=== PATIENT | female | born 1995 | race American Indian/Alaskan Native ===

== ENCOUNTER 2017-01-23 12:39 | Emergency (ER) | payer OTHER ==
[2017-01-23] MEDS ORDERED: TYLENOL PO ONE (17:43)
[2017-01-23 18:05] LABS: Urine Drugs of Abuse Note Disclamer
[2017-01-23 18:20] LABS: Bacteria,Urine 1+ /HPF (Negative); Bilirubin,Urine NEG (Negative); Blood,Urine NEG (Negative); Ketones,Urine TR mg/dL (Negative); Leukocyte Esterase,Urine NEG (Negative); Mucus,Urine 3+ /HPF; Nitrite,Urine NEG (Negative); Protein,Urine <15 mg/dL mg/dL (Negative)
[2017-01-23 18:26] LABS: Basophils % (Auto) 0.5 % (0.0-1.8); Eosinophils % (Auto) 2.7 % (0.0-4.3); Hematocrit 37.1 % (30.3-42.9); Hemoglobin 12.2 gm/dl (10.1-14.3); Mean Corpuscular HGB Conc 33 % (30-34); Mean Corpuscular Hemoglobin 28 pg (28-32); Mean Corpuscular Volume 86 fl (79-97); Platelet Count 178 K/mm3 (140-440); Red Blood Count 4.33 M/mm3 (3.65-5.03); White Blood Count 10.8 K/mm3 (4.5-11.0)
[2017-01-23 18:47] LABS: Anion Gap 15 mmol/L; BUN/Creatinine Ratio 20; Blood Urea Nitrogen 12 mg/dL (7-17); Calcium 8.9 mg/dL (8.4-10.2); Carbon Dioxide 26 mmol/L (22-30); Glucose 87 mg/dL (65-100); Potassium 3.7 mmol/L (3.6-5.0); Sodium 142 mmol/L (137-145)
[2017-01-23 18:51] LABS: Alanine Aminotransferase 17 units/L (7-56); Albumin 4.2 g/dL (3.9-5); Albumin/Globulin Ratio 1.3 %; Alkaline Phosphatase 48 units/L (35-129); Creatine Kinase 604 units/L (30-135); Total Protein 7.4 g/dL (6.3-8.2)
[2017-01-23 18:52] LABS: Bilirubin,Direct < 0.2 mg/dL (0-0.2)
--- NOTE | 2017-01-23 19:07 | Cat Scan Report ---
FINAL REPORT PROCEDURE: CT HEAD/BRAIN WO CON TECHNIQUE: Computerized tomography of the head was performed without contrast material. HISTORY: severe headache worsening COMPARISON: Prior CT scan of the brain 01/20/2017 FINDINGS: Brain: Brain density appears normal. No evidence of intracranial hemorrhage. No parenchymal hemorrhage, mass lesions or mass effect are seen. No abnormal extraxial fluid collects or masses are seen. Ventricles: Ventricles are normal size and are midline. Bone Windows: No evidence of skull fracture. Paranasal sinuses: Clear Mastoid air cells: Clear IMPRESSION: Negative exam. No interval change.
[2017-01-23] MEDS ORDERED: TORADOL IM ONE (19:16)
--- NOTE | 2017-01-23 19:21 | Emergency Department Report ---
ED Headache HPI - General Chief Complaint: Headache Stated Complaint: HEAD PAIN, NECK STIFFNESS Time Seen by Provider: 01/23/17 17:07 Source: patient - History of Present Illness Initial Comments: Patient is a 21 years old female history of seizure presented today with chief complaint of headache and neck pain started this morning patient stated that she wake up with the symptoms. She denied any fever, nausea, vomiting. Patient is stated that she does not have any weakness, numbness or tingling sensation no bowel or bladder incontinence and no difficulty walking. While in the bathroom patient fell and hit her head but there is no loss of consciousness. Quality: moderate Head Injury Location: global Recent Head Trauma: no recent headache/trauma Allergies/Adverse Reactions: Allergies latex Allergy (Verified 01/23/17 12:55) Rash phenytoin sodium [From Dilantin] Allergy (Verified 01/23/17 12:55) Unknown phenytoin sodium extended [From Dilantin] Allergy (Verified 01/23/17 12:55) Unknown Home Medications: Ambulatory Orders ALBUTEROL Inhaler [ProAir HFA Inhaler] 2 puff INHALATION Q6HR PRN 12/12/13 Vit B12/Folic Acid/B6/Aa No.15 [Glycotrol Capsule] 1 cap PO DAILY 12/12/13 Omeprazole [PriLOSEC] 20 mg PO BID #30 cap 05/15/14 Dicyclomine [Bentyl] 20 mg PO QID #20 tablet 10/12/14 Promethazine [Phenergan TAB] 25 mg PO Q6HR PRN #10 tab 10/12/14 levETIRAcetam [Keppra TAB] 500 mg PO BID #60 tablet 01/21/17 ED Review of Systems ROS: Stated complaint: HEAD PAIN, NECK STIFFNESS Other details as noted in HPI Comment: All other systems reviewed and negative Constitutional: denies: chills, fever Respiratory: denies: cough, orthopnea, shortness of breath, SOB with exertion, SOB at rest Cardiovascular: denies: chest pain, palpitations, dyspnea on exertion, orthopnea Gastrointestinal: denies: abdominal pain, nausea, vomiting, diarrhea, constipation, hematemesis, melena, hematochezia Genitourinary: denies: frequency, hematuria Musculoskeletal: denies: back pain Neurological: headache. denies: weakness, numbness, paresthesias, confusion ED Past Medical Hx - Past Medical History Hx Congestive Heart Failure: No Hx Diabetes: Yes (controlled by diet) Hx Seizures: Yes Hx Asthma: Yes Hx COPD: No - Surgical History Past Surgical History?: No - Social History Smoking Status: Never Smoker Substance Use Type: None - Medications Home Medications: Home Medications Medication Instructions Recorded Confirmed Last Taken Type ALBUTEROL Inhaler [ProAir HFA 2 puff INHALATION Q6HR PRN 12/12/13 03/22/16 Unknown History Inhaler] Vit B12/Folic Acid/B6/Aa No.15 1 cap PO DAILY 12/12/13 03/22/16 12/12/13 History [Glycotrol Capsule] Omeprazole [PriLOSEC] 20 mg PO BID #30 cap 05/15/14 03/22/16 Unknown Rx Dicyclomine [Bentyl] 20 mg PO QID #20 tablet 10/12/14 03/22/16 Unknown Rx Promethazine [Phenergan TAB] 25 mg PO Q6HR PRN #10 tab 10/12/14 03/22/16 Unknown Rx levETIRAcetam [Keppra TAB] 500 mg PO BID #60 tablet 01/21/17 Unknown Rx ED Physical Exam - General Limitations: No Limitations General appearance: alert, in no apparent distress - Head Head exam: Present: atraumatic, normocephalic, normal inspection - Eye Eye exam: Present: normal appearance, PERRL - ENT ENT exam: Present: normal exam, normal orophraynx, mucous membranes moist - Neck Neck exam: Present: normal inspection. Absent: tenderness, meningismus, lymphadenopathy, thyromegaly - Respiratory Respiratory exam: Present: normal lung sounds bilaterally. Absent: respiratory distress, wheezes, rales, rhonchi, stridor, chest wall tenderness, accessory muscle use, decreased breath sounds, prolonged expiratory - Cardiovascular Cardiovascular Exam: Present: regular rate, normal rhythm, normal heart sounds. Absent: bradycardia, tachycardia, irregular rhythm, systolic murmur, diastolic murmur - GI/Abdominal GI/Abdominal exam: Present: soft, normal bowel sounds. Absent: distended, tenderness, guarding, rebound, rigid, organomegaly, mass, bruit, pulsatile mass , hernia - Extremities Exam Extremities exam: Present: normal inspection, full ROM, normal capillary refill. Absent: tenderness, pedal edema - Back Exam Back exam: Present: normal inspection. Absent: tenderness, CVA tenderness (R), CVA tenderness (L) - Neurological Exam Neurological exam: Present: alert, oriented X3, CN II-XII intact, normal gait - Skin Skin exam: Present: warm, intact, normal color ED Course Vital Signs 01/23/17 01/23/17 12:55 20:34 Temperature 98.4 F Pulse Rate 78 Respiratory 16 18 Rate Blood Pressure 135/83 O2 Sat by Pulse 100 Oximetry - Reevaluation(s) Reevaluation #1: 01/23/17 21:06 Patient stated that she is feeling much better, headache resolve and neck pain improved significantly after Toradol. ED Medical Decision Making - Lab Data Result diagrams: 01/23/17 18:05 01/23/17 18:05 - Radiology Data Radiology results: report reviewed CT head negative for acute finding, CT C-spine negative for acute finding. Critical care attestation.: If time is entered above; I have spent that time in minutes in the direct care of this critically ill patient, excluding procedure time. ED Disposition Clinical Impression: Headache, Neck pain Disposition: DC-01 TO HOME OR SELFCARE Is pt being admited?: No Condition: Stable Instructions: Acute Headache (ED), Cervical Radiculopathy (ED) Referrals: PRIMARY CARE, [Primary Care Provider] - 3-5 Days
--- NOTE | 2017-01-23 20:46 | Cat Scan Report ---
FINAL REPORT PROCEDURE: CT CERVICAL SPINE WO CON TECHNIQUE: Computerized tomography of the cervical spine was performed from the skull base to T1 without contrast material. HISTORY: Fell. Loss of consciousness COMPARISON: No prior studies are available for comparison. FINDINGS: No evidence of fracture or subluxation. Bone density appears normal. Posterior elements appear intact. Prevertebral soft tissues appear normal. Disc spaces are well preserved with the exception of a small central disc protrusion at the C4-C5 level obscuring a small portion the anterior epidural space. There is no cord compression or spinal stenosis. IMPRESSION: No evidence of fracture or subluxation. Small central disc protrusion C4-C5 level. No other abnormalities are identified..
[2017-01-23 21:47] VITALS: BP 122/72
== END 2017-01-23 21:48 | disposition home or self-care (01) ==
LOC: ED 12:39
DX: R51 Headache (principal); M54.2 Cervicalgia; J45.909 Unspecified asthma, uncomplicated; E11.9 Type 2 diabetes mellitus without complications; R53.1 Weakness; W01.0XXA Fall on same level from slipping, tripping and stumbling without subsequent striking against object, initial encounter; Y93.89 Activity, other specified; Y92.89 Other specified places as the place of occurrence of the external cause; Y99.8 Other external cause status
CPT/HCPCS: 36415; 70450; 72125; 80048; 80074; 80307; 81001; 81025; 82140; 82550; 85025; 87040; 87086; 96372; 99284; J1885

== ENCOUNTER 2017-03-17 00:04 | Emergency (ER) | payer OTHER ==
[2017-03-17] MEDS ORDERED: TORADOL IM ONE (05:05)
--- NOTE | 2017-03-17 05:06 | Emergency Department Report ---
ED Headache HPI - General Chief Complaint: Headache Stated Complaint: CHEST PAIN / HEAD PAIN Time Seen by Provider: 03/17/17 04:17 - History of Present Illness Initial Comments: Patient is a 21-year-old female who presents to ED complaining of generalized, throbbing, aching, 6 out of 10 intensity, nonradiating headache that started yesterday. Patient states she has no history of headaches. Patient states headache is worse with light and loud noises. She denies any head injuries or trauma. CV associates 2/nausea/vomiting/blurry vision/dizziness Timing/Duration: 24 hours Quality: moderate Recent Head Trauma: no recent headache/trauma Associated Symptoms: denies: confusion, fatigue, loss of consciousness, nausea/ vomiting, nasal congestion Allergies/Adverse Reactions: Allergies latex Allergy (Verified 01/23/17 12:55) Rash phenytoin sodium [From Dilantin] Allergy (Verified 01/23/17 12:55) Unknown phenytoin sodium extended [From Dilantin] Allergy (Verified 01/23/17 12:55) Unknown Home Medications: Ambulatory Orders ALBUTEROL Inhaler [ProAir HFA Inhaler] 2 puff INHALATION Q6HR PRN 12/12/13 Vit B12/Folic Acid/B6/Aa No.15 [Glycotrol Capsule] 1 cap PO DAILY 12/12/13 Omeprazole [PriLOSEC] 20 mg PO BID #30 cap 05/15/14 Dicyclomine [Bentyl] 20 mg PO QID #20 tablet 10/12/14 Promethazine [Phenergan TAB] 25 mg PO Q6HR PRN #10 tab 10/12/14 levETIRAcetam [Keppra TAB] 500 mg PO BID #60 tablet 01/21/17 Metaxalone [Skelaxin] 800 mg PO TID #20 tablet 01/23/17 Naproxen [Naprosyn TAB] 500 mg PO BID #14 tablet 03/17/17 Prochlorperazine [Compazine] 10 mg PO Q8HR #20 tablet 03/17/17 ED Review of Systems ROS: Stated complaint: CHEST PAIN / HEAD PAIN Other details as noted in HPI Constitutional: denies: chills, fever Eyes: denies: eye pain, eye discharge, vision change ENT: denies: ear pain, throat pain Respiratory: denies: cough, shortness of breath, wheezing Cardiovascular: denies: chest pain, palpitations Endocrine: no symptoms reported Gastrointestinal: denies: abdominal pain, nausea, diarrhea Genitourinary: denies: urgency, dysuria, discharge Musculoskeletal: denies: back pain, joint swelling, arthralgia Skin: denies: rash, lesions Neurological: headache. denies: weakness, numbness, paresthesias, confusion, abnormal gait Psychiatric: denies: anxiety, depression Hematological/Lymphatic: denies: easy bleeding, easy bruising ED Past Medical Hx - Past Medical History Previous Medical History?: Yes Hx Congestive Heart Failure: No Hx Diabetes: Yes (controlled by diet) Hx Seizures: Yes Hx Asthma: Yes Hx COPD: No - Surgical History Past Surgical History?: No - Social History Smoking Status: Never Smoker Substance Use Type: None - Medications Home Medications: Home Medications Medication Instructions Recorded Confirmed Last Taken Type ALBUTEROL Inhaler [ProAir HFA 2 puff INHALATION Q6HR PRN 12/12/13 03/22/16 Unknown History Inhaler] Vit B12/Folic Acid/B6/Aa No.15 1 cap PO DAILY 12/12/13 03/22/16 12/12/13 History [Glycotrol Capsule] Omeprazole [PriLOSEC] 20 mg PO BID #30 cap 05/15/14 03/22/16 Unknown Rx Dicyclomine [Bentyl] 20 mg PO QID #20 tablet 10/12/14 03/22/16 Unknown Rx Promethazine [Phenergan TAB] 25 mg PO Q6HR PRN #10 tab 10/12/14 03/22/16 Unknown Rx levETIRAcetam [Keppra TAB] 500 mg PO BID #60 tablet 01/21/17 Unknown Rx Metaxalone [Skelaxin] 800 mg PO TID #20 tablet 01/23/17 Unknown Rx Naproxen [Naprosyn TAB] 500 mg PO BID #14 tablet 03/17/17 Unknown Rx Prochlorperazine [Compazine] 10 mg PO Q8HR #20 tablet 03/17/17 Unknown Rx ED Physical Exam - General Limitations: No Limitations General appearance: alert, in no apparent distress - Head Head exam: Present: atraumatic, normocephalic - Eye Eye exam: Present: normal appearance - ENT ENT exam: Present: mucous membranes moist - Neck Neck exam: Present: normal inspection - Respiratory Respiratory exam: Present: normal lung sounds bilaterally. Absent: respiratory distress - Cardiovascular Cardiovascular Exam: Present: regular rate, normal rhythm. Absent: systolic murmur, diastolic murmur, rubs, gallop - GI/Abdominal GI/Abdominal exam: Present: soft, normal bowel sounds - Extremities Exam Extremities exam: Present: normal inspection - Back Exam Back exam: Present: normal inspection - Neurological Exam Neurological exam: Present: alert, oriented X3, CN II-XII intact, normal gait, reflexes normal - Expanded Neurological Exam Expanded Patient oriented to: Present: person, place, time Speech: Present: fluid speech Cranial nerves: EOM's Intact: Normal, Facial Sensation: Normal Cerebellar function: Finger to Nose: Normal Sensory exam: Upper Extremity Light Touch: Normal, Lower Extremity Light Touch: Normal Motor strength exam: RUE: 5, LUE: 5, RLE: 5, LLE: 5 DTR: knee (R): 2+, knee (L): 2+ Best Eye Response ([place]): (4) open spontaneously Best Motor Response (Dhruv): (6) obeys commands Best Verbal Response (Dhruv): (5) oriented Dhruv Total: 15 - Psychiatric Psychiatric exam: Present: normal affect, normal mood - Skin Skin exam: Present: warm, dry, intact, normal color. Absent: rash ED Course Vital Signs 03/17/17 03/17/17 02:01 05:59 Temperature 98.2 F 97.8 F Pulse Rate 74 70 Respiratory 18 16 Rate Blood Pressure 126/78 Blood Pressure 118/75 [Right] O2 Sat by Pulse 100 98 Oximetry ED Medical Decision Making - Medical Decision Making 21-year-old female presents with migraine headache ED course: Patient received Toradol in ED Patient was sleeping comfortably in room. Patient has no neurological deficits. Vital signs are normal patient is in no acute distress. I discussed the patient to follow up with primary care physician. I discussed with patient to return to ED if symptoms worsen or new onset of symptoms such as nausea vomiting dizziness Critical care attestation.: If time is entered above; I have spent that time in minutes in the direct care of this critically ill patient, excluding procedure time. ED Disposition Clinical Impression: Headache Qualifiers: Headache type: tension-type Headache chronicity pattern: acute headache Migraine Qualifiers: Migraine type: other Status migrainosus presence: without status migrainosus Disposition: DC- TO HOME OR SELFCARE Is pt being admited?: No Does the pt Need Aspirin: No Condition: Stable Instructions: Migraine Headache (ED), Acute Headache (ED) Additional Instructions: Make sure to follow up with the primary care physician as discussed. Take all your medications as you've been prescribed. If you have any worsening symptoms or develop new symptoms please return to ED immediately. Prescriptions: Naproxen [Naprosyn TAB] 500 mg PO BID #14 tablet Prochlorperazine [Compazine] 10 mg PO Q8HR #20 tablet Referrals: CLARISSE GUTIERREZ MD [Primary Care Provider] - 3-5 Days ANNY TAVAREZ MD [Staff Physician] - 3-5 Days Forms: Accompanied Note, Work/School Release Form(ED) Time of Disposition: 05:31
[2017-03-17 06:00] VITALS: BP 118/75
== END 2017-03-17 05:58 | disposition home or self-care (01) ==
LOC: ED 00:04
DX: G43.909 Migraine, unspecified, not intractable, without status migrainosus (principal); E11.9 Type 2 diabetes mellitus without complications
CPT/HCPCS: 93005; 93010; 96372; 99282; J1885

== ENCOUNTER 2017-08-17 20:52 | Emergency (ER) | payer OTHER ==
[2017-08-17 23:25] LABS: Hematocrit 38.6 % (30.3-42.9); Hemoglobin 12.5 gm/dl (10.1-14.3); Mean Corpuscular HGB Conc 32 % (30-34); Mean Corpuscular Hemoglobin 27 pg (28-32); Mean Corpuscular Volume 84 fl (79-97); Platelet Count 178 K/mm3 (140-440); Red Blood Count 4.58 M/mm3 (3.65-5.03); Red Cell Distribution Width 13.5 % (13.2-15.2)
[2017-08-17 23:41] LABS: Alanine Aminotransferase 20 units/L (7-56); Albumin 4.2 g/dL (3.9-5); BUN/Creatinine Ratio 18; Blood Urea Nitrogen 9 mg/dL (7-17); Calcium 8.9 mg/dL (8.4-10.2); Hemolysis Index 12
[2017-08-18 02:28] LABS: Total Cells Counted 100
[2017-08-18 02:29] LABS: RBC Morphology Normal
[2017-08-18] MEDS ORDERED: TORADOL IV ONE (04:06)
[2017-08-18] MEDS ORDERED: TYLENOL PO ONE (04:07)
[2017-08-18] MEDS ORDERED: ZOFRAN IV ONE (04:07)
--- NOTE | 2017-08-18 04:07 | Emergency Department Report ---
ED Abdominal Pain HPI - General Chief Complaint: Abdominal Pain Stated Complaint: ABD PAIN/VOMITING Time Seen by Provider: 08/18/17 03:58 Source: patient Mode of arrival: Ambulatory Limitations: No Limitations - History of Present Illness Initial Comments: This is a 21-year-old female, known to this provider, presenting to the ER with a complaint of lower abdominal pain. The pain is present for 2 days, she vomited 7 times over the past couple days, reports that she is not , reports one sexual partner. Denies headache, neck pain, chest pain, urinary symptoms, feminine discharge. Her pain is achy and crampy, it is suprapubic and in the left lower quadrant, it does not radiate anywhere, and she reports she gets better when she sits down or leans forward. MD Complaint: abdominal pain -: Gradual Location: LLQ, suprapubic Severity: mild, moderate Quality: cramping Consistency: intermittent Improves With: other Worsens With: other - Related Data Home Medications Medication Instructions Recorded Confirmed Last Taken ALBUTEROL Inhaler [ProAir HFA 2 puff INHALATION Q6HR PRN 12/12/13 03/22/16 Unknown Inhaler] Vit B12/Folic Acid/B6/Aa No.15 1 cap PO DAILY 12/12/13 03/22/16 12/12/13 [Glycotrol Capsule] Previous Rx's Medication Instructions Recorded Last Taken Type Omeprazole [PriLOSEC] 20 mg PO BID #30 cap 05/15/14 Unknown Rx Dicyclomine [Bentyl] 20 mg PO QID #20 tablet 10/12/14 Unknown Rx Promethazine [Phenergan TAB] 25 mg PO Q6HR PRN #10 tab 10/12/14 Unknown Rx levETIRAcetam [Keppra TAB] 500 mg PO BID #60 tablet 01/21/17 Unknown Rx Metaxalone [Skelaxin] 800 mg PO TID #20 tablet 01/23/17 Unknown Rx Naproxen [Naprosyn TAB] 500 mg PO BID #14 tablet 03/17/17 Unknown Rx Prochlorperazine [Compazine] 10 mg PO Q8HR #20 tablet 03/17/17 Unknown Rx Acetaminophen [Tylenol Arthritis] 650 mg PO Q6HR PRN #30 tablet.er 08/18/17 Unknown Rx Ibuprofen [Motrin] 600 mg PO Q8H PRN #30 tablet 08/18/17 Unknown Rx Ondansetron [Zofran Odt] 4 mg PO Q8HR PRN #20 tab.rapdis 08/18/17 Unknown Rx Allergies Allergy/AdvReac Type Severity Reaction Status Date / Time latex Allergy Rash Verified 01/23/17 12:55 phenytoin sodium Allergy Unknown Verified 01/23/17 12:55 [From Dilantin] phenytoin sodium extended Allergy Unknown Verified 01/23/17 12:55 [From Dilantin] ED Review of Systems ROS: Stated complaint: ABD PAIN/VOMITING Other details as noted in HPI Constitutional: denies: fever Eyes: denies: vision change ENT: denies: epistaxis Respiratory: denies: cough Cardiovascular: denies: chest pain Gastrointestinal: abdominal pain. denies: hematemesis, melena Genitourinary: denies: dysuria Musculoskeletal: denies: back pain Skin: denies: lesions Neurological: weakness. denies: headache Psychiatric: as per HPI ED Past Medical Hx - Past Medical History Hx Congestive Heart Failure: No Hx Diabetes: Yes (controlled by diet) Hx Seizures: Yes Hx Asthma: Yes Hx COPD: No - Social History Smoking Status: Never Smoker Substance Use Type: None - Medications Home Medications: Home Medications Medication Instructions Recorded Confirmed Last Taken Type ALBUTEROL Inhaler [ProAir HFA 2 puff INHALATION Q6HR PRN 12/12/13 03/22/16 Unknown History Inhaler] Vit B12/Folic Acid/B6/Aa No.15 1 cap PO DAILY 12/12/13 03/22/16 12/12/13 History [Glycotrol Capsule] Omeprazole [PriLOSEC] 20 mg PO BID #30 cap 05/15/14 03/22/16 Unknown Rx Dicyclomine [Bentyl] 20 mg PO QID #20 tablet 10/12/14 03/22/16 Unknown Rx Promethazine [Phenergan TAB] 25 mg PO Q6HR PRN #10 tab 10/12/14 03/22/16 Unknown Rx levETIRAcetam [Keppra TAB] 500 mg PO BID #60 tablet 01/21/17 Unknown Rx Metaxalone [Skelaxin] 800 mg PO TID #20 tablet 01/23/17 Unknown Rx Naproxen [Naprosyn TAB] 500 mg PO BID #14 tablet 03/17/17 Unknown Rx Prochlorperazine [Compazine] 10 mg PO Q8HR #20 tablet 03/17/17 Unknown Rx Acetaminophen [Tylenol Arthritis] 650 mg PO Q6HR PRN #30 tablet.er 08/18/17 Unknown Rx Ibuprofen [Motrin] 600 mg PO Q8H PRN #30 tablet 08/18/17 Unknown Rx Ondansetron [Zofran Odt] 4 mg PO Q8HR PRN #20 tab.rapdis 08/18/17 Unknown Rx ED Physical Exam - General Limitations: No Limitations General appearance: alert, in no apparent distress - Head Head exam: Present: atraumatic, normocephalic - Eye Eye exam: Present: normal appearance, EOMI. Absent: nystagmus - ENT ENT exam: Present: normal exam, normal orophraynx, mucous membranes moist, normal external ear exam - Neck Neck exam: Present: normal inspection, full ROM - Respiratory Respiratory exam: Present: normal lung sounds bilaterally. Absent: respiratory distress - Cardiovascular Cardiovascular Exam: Present: regular rate, normal rhythm, normal heart sounds. Absent: bradycardia, tachycardia, irregular rhythm, systolic murmur, diastolic murmur, rubs, gallop - GI/Abdominal GI/Abdominal exam: Present: soft, tenderness, normal bowel sounds, other ( suprapubic and left lower quadrant tenderness. There is no right lower quadrant tenderness, there is no rebound, guarding or peritoneal signs. Negative Rovsing sign. There is negative Juarez sign.). Absent: distended, guarding, rebound, rigid, pulsatile mass - External exam: Present: normal external exam Speculum exam: Present: normal speculum exam. Absent: cervical discharge, vaginal bleeding Bi-manual exam: Present: normal bi-manual exam, cervical motion tendernes, adnexal tenderness, uterine tenderness, other (escorted by nursing CLAU SANCHEZ) . Absent: adnexal mass, uterine enlargement - Extremities Exam Extremities exam: Present: normal inspection, full ROM. Absent: tenderness, pedal edema, joint swelling - Back Exam Back exam: Present: normal inspection, full ROM. Absent: tenderness, CVA tenderness (R), paraspinal tenderness, vertebral tenderness - Neurological Exam Neurological exam: Present: alert, oriented X3, CN II-XII intact, normal gait, other (Extraocular movements intact. Tongue midline. No facial droop. Facial sensation intact to light touch in the V1, V2, V3 distribution bilaterally. 5 and 5 strength in 4 extremities.. Sensation is intact to light touch in 4 extremities.). Absent: motor sensory deficit - Psychiatric Psychiatric exam: Present: normal affect, normal mood - Skin Skin exam: Present: warm, dry, intact, normal color. Absent: rash ED Course Vital Signs 08/17/17 22:35 Temperature 98.4 F Pulse Rate 69 Respiratory 16 Rate Blood Pressure 127/84 O2 Sat by Pulse 98 Oximetry - Reevaluation(s) Reevaluation #1: 08/18/17 05:34 Differential diagnosis, including but not limited to: Ovarian cyst, pelvic inflammatory disease, urinary tract infection, polycystic ovaries Assessment and plan: 21-year-old female with lower abdominal pain, no right lower quadrant tenderness, has gynecologic tenderness she is afebrile with reassuring vital signs. Patient's pain will be treated symptomatically. Have a low suspicion for pelvic inflammatory disease given the lack of fever, discharge. Cultures have been sent. Care is transferred to the oncoming ER physician, Dr Ceasar Go, to follow up on pelvic ultrasound. If negative, patient would be discharged with pain medication, nausea medication, instructions to follow up with outpatient gynecology. Reevaluation #2: 08/18/17 05:36 Dr. Go also to follow up on repeat vital signs in urinalysis. ED Medical Decision Making - Lab Data Result diagrams: 08/17/17 23:12 08/17/17 23:12 Vital Signs 08/17/17 22:35 Temperature 98.4 F Pulse Rate 69 Respiratory 16 Rate Blood Pressure 127/84 O2 Sat by Pulse 98 Oximetry Lab Results 08/17/17 08/17/17 08/17/17 Range/Units 23:12 23:12 23:12 WBC 10.0 (4.5-11.0) K/mm3 RBC 4.58 (3.65-5.03) M/mm3 Hgb 12.5 (10.1-14.3) gm/dl Hct 38.6 (30.3-42.9) % MCV 84 (79-97) fl MCH 27 L (28-32) pg MCHC 32 (30-34) % RDW 13.5 (13.2-15.2) % Plt Count 178 (140-440) K/mm3 Add Manual Diff Complete Total Counted 100 Seg Neuts % (Manual) 69.0 (40.0-70.0) % Band Neutrophils % 0 % Lymphocytes % (Manual) 23.0 (13.4-35.0) % Reactive Lymphs % (Man) 0 % Monocytes % (Manual) 2.0 (0.0-7.3) % Eosinophils % (Manual) 5.0 H (0.0-4.3) % Basophils % (Manual) 1.0 (0.0-1.8) % Metamyelocytes % 0 % Myelocytes % 0 % Promyelocytes % 0 % Blast Cells % 0 % Nucleated RBC % Not Reportable Seg Neutrophils # Man 6.9 (1.8-7.7) K/mm3 Band Neutrophils # 0.0 K/mm3 Lymphocytes # (Manual) 2.3 (1.2-5.4) K/mm3 Abs React Lymphs (Man) 0.0 K/mm3 Monocytes # (Manual) 0.2 (0.0-0.8) K/mm3 Eosinophils # (Manual) 0.5 H (0.0-0.4) K/mm3 Basophils # (Manual) 0.1 (0.0-0.1) K/mm3 Metamyelocytes # 0.0 K/mm3 Myelocytes # 0.0 K/mm3 Promyelocytes # 0.0 K/mm3 Blast Cells # 0.0 K/mm3 WBC Morphology Not Reportable Hypersegmented Neuts Not Reportable Hyposegmented Neuts Not Reportable Hypogranular Neuts Not Reportable Smudge Cells Not Reportable Toxic Granulation Not Reportable Toxic Vacuolation Not Reportable Dohle Bodies Not Reportable Pelger-Huet Anomaly Not Reportable Shailesh Rods Not Reportable Platelet Estimate Appears normal Clumped Platelets Not Reportable Plt Clumps, EDTA Not Reportable Large Platelets Not Reportable Giant Platelets Not Reportable Platelet Satelliting Not Reportable Plt Morphology Comment Not Reportable RBC Morphology Normal Dimorphic RBCs Not Reportable Polychromasia Not Reportable Hypochromasia Not Reportable Poikilocytosis Not Reportable Anisocytosis Not Reportable Microcytosis Not Reportable Macrocytosis Not Reportable Spherocytes Not Reportable Pappenheimer Bodies Not Reportable Sickle Cells Not Reportable Target Cells Not Reportable Tear Drop Cells Not Reportable Ovalocytes Not Reportable Helmet Cells Not Reportable Shannon-[place]ollo Bodies Not Reportable [place] Rings Not Reportable [place] Cells Not Reportable Bite Cells Not Reportable Crenated Cell Not Reportable Elliptocytes Not Reportable Acanthocytes (Spur) Not Reportable Rouleaux Not Reportable Hemoglobin C Crystals Not Reportable Schistocytes Not Reportable Malaria parasites Not Reportable Stefano Bodies Not Reportable Hem Pathologist Commnt No Sodium 140 (137-145) mmol/L Potassium 3.5 L (3.6-5.0) mmol/L Chloride 102.9 (98-107) mmol/L Carbon Dioxide 25 (22-30) mmol/L Anion Gap 16 mmol/L BUN 9 (7-17) mg/dL Creatinine 0.5 L (0.7-1.2) mg/dL Estimated GFR > 60 ml/min BUN/Creatinine Ratio 18 % Glucose 92 (65-100) mg/dL Calcium 8.9 (8.4-10.2) mg/dL Total Bilirubin 0.20 (0.1-1.2) mg/dL AST 21 (5-40) units/L ALT 20 (7-56) units/L Alkaline Phosphatase 52 (35-129) units/L Total Protein 7.3 (6.3-8.2) g/dL Albumin 4.2 (3.9-5) g/dL Albumin/Globulin Ratio 1.4 % HCG, Qual Negative (Negative) Critical care attestation.: If time is entered above; I have spent that time in minutes in the direct care of this critically ill patient, excluding procedure time. ED Disposition Clinical Impression: Abdominal pain Disposition: DC-01 TO HOME OR SELFCARE Is pt being admited?: No Does the pt Need Aspirin: No Condition: Stable Instructions: Abdominal Pain (ED) Additional Instructions: Cultures were sent today, results will be available in the next 3-5 days. Have a primary care doctor contact the medical records department to obtain culture results. Ultrasound showed numerous incidental findings, please follow up with an [facility] doctor within the next 7-14 days. Return to the ER right away with ear pain, worsening pain, migration of pain, fevers, chills, lethargy, irritability, projectile vomiting, change in mental status, confusion, inability to tolerate liquid feeds. Referrals: PRIMARY CARE, [Primary Care Provider] - 3-5 Days [facility] [Provider Group] - 3-5 Days [facility] [Provider Group] - 3-5 Days [facility] [Provider Group] - 3-5 Days
[2017-08-18 05:57] VITALS: BP 122/74
[2017-08-18 05:57] LABS: Bilirubin,Urine NEG (Negative); Blood,Urine NEG (Negative); Calcium Oxalate Crystals,Urine 1+; Color,Urine Yellow (Yellow); Mucus,Urine 3+ /HPF; Protein,Urine <15 mg/dL mg/dL (Negative)
--- NOTE | 2017-08-18 06:12 | Ultrasound Report ---
FINAL REPORT EXAM: US TRANSVAGINAL HISTORY: lower abd pain COMPARISONS: None. FINDINGS: Transvaginal grayscale, color and spectral Doppler pelvic ultrasound Anteverted uterus measures 7.2 x 3.4 x 4.9 cm. Myometrium is within normal limits. Homogeneous endometrium measures approximately 1-2 millimeters in thickness. No significant free fluid in the pelvis. Ovaries demonstrate normal echotexture and normal color and spectral Doppler evaluation and measure 3.3 x 2.7 x 2.7 cm on the right and 4.1 x 2.5 x 3.2 cm on the left. Dominant left ovarian follicle measures up to 2.5 cm. IMPRESSION: Unremarkable pelvic ultrasound.
--- NOTE | 2017-08-18 06:13 | Ultrasound Report ---
FINAL REPORT EXAM: US PELVIS DUPLEX DOPPLER COMP HISTORY: lower abd pain COMPARISONS: None. FINDINGS: Transabdominal grayscale, color and spectral Doppler pelvic ultrasound Anteverted uterus measures 7.2 x 3.4 x 4.9 cm. Myometrium is within normal limits. Homogeneous endometrium is better demonstrated on transvaginal ultrasound of the same date. No significant free fluid in the pelvis. The ovaries are better visualized on transvaginal ultrasound of the same date. IMPRESSION: Unremarkable pelvic ultrasound. Please see transvaginal ultrasound of the same date.
== END 2017-08-18 06:42 | disposition home or self-care (01) ==
LOC: ED 20:52
DX: R10.32 Left lower quadrant pain (principal); E11.9 Type 2 diabetes mellitus without complications; J45.909 Unspecified asthma, uncomplicated; Z91.040 Latex allergy status; Z88.8 Allergy status to other drugs, medicaments and biological substances
CPT/HCPCS: 36415; 76830; 80053; 81001; 84703; 85007; 85025; 87086; 87210; 87591; 93975; 96374; 96375; 99285; J1885; J2405

== ENCOUNTER 2017-11-26 19:25 | Emergency (ER) | payer OTHER ==
[2017-11-26] MEDS ORDERED: KEPPRA 1,000 MG/NS 0.75% 100ML 1,000 MG/100 ML BAG IV ONE ×3 (20:21→21:00)
--- NOTE | 2017-11-26 20:22 | Emergency Department Report ---
ED Seizure HPI - General Chief Complaint: Seizure Stated Complaint: CONVULSIONS Time Seen by Provider: 11/26/17 20:17 Source: patient, EMS (ems notes not available at time of chart dictation), RN notes reviewed, old records reviewed Mode of arrival: Stretcher Limitations: No Limitations - History of Present Illness Initial Comments: This is a 22-year-old female whom I have evaluated in the past. The patient has a past history of seizure, and is supposed be taking Keppra 500 mg twice daily. The patient reports taking her medication, and reports compliance. She is brought to the hospital today by EMS with a complaint of seizure. Patient believes that she had a seizure. Apparently her friend saw her having a seizure. Her friend is unavailable for collateral information. The patient indicates that she has a mild headache, no neck pain, no chest pain , no abdominal pain and no urinary symptoms. The headache is throbbing, and not sudden or thunderclap in nature. It does not radiate anywhere and does not have exacerbating or relieving factors. MD Complaint: possible seizure -: Sudden Description of Episode: loss of consciousness -: second(s) Witnessed:: Yes Seizure History: known seizure disorder Place: other Associated Symptoms: loss of appetite, malaise, weakness, other (headache). denies: chest pain, confusion, cough, diaphoresis, fever/chills, rash, shortness of breath, syncope, tongue injury, shoulder dislocation - Related Data Previous Rx's Medication Instructions Recorded Last Taken Type levETIRAcetam [Keppra TAB] 500 mg PO BID #60 tablet 01/21/17 Unknown Rx Nitrofurantoin [place]/M-Cryst 100 mg PO Q12HR #14 capsule 10/13/17 Unknown Rx [Macrobid CAP] levETIRAcetam [Keppra TAB] 500 mg PO BID #60 tablet 10/13/17 Unknown Rx Potassium Chloride 20 meq PO BID #20 packet 11/27/17 Unknown Rx levETIRAcetam [Keppra TAB] 750 mg PO BID #60 tablet 11/27/17 Unknown Rx Allergies Allergy/AdvReac Type Severity Reaction Status Date / Time latex Allergy Rash Verified 01/23/17 12:55 phenytoin sodium Allergy Unknown Verified 01/23/17 12:55 [From Dilantin] phenytoin sodium extended Allergy Unknown Verified 01/23/17 12:55 [From Dilantin] ED Review of Systems ROS: Stated complaint: CONVULSIONS Other details as noted in HPI Constitutional: malaise. denies: fever Eyes: denies: eye discharge ENT: denies: epistaxis Respiratory: denies: cough Cardiovascular: denies: chest pain Gastrointestinal: denies: abdominal pain Genitourinary: denies: dysuria Musculoskeletal: myalgia Neurological: headache ED Past Medical Hx - Past Medical History Hx Congestive Heart Failure: No Hx Diabetes: Yes (controlled by diet) Hx Seizures: Yes Hx Asthma: Yes Hx COPD: No - Social History Smoking Status: Never Smoker Substance Use Type: None - Medications Home Medications: Home Medications Medication Instructions Recorded Confirmed Last Taken Type levETIRAcetam [Keppra TAB] 500 mg PO BID #60 tablet 01/21/17 10/13/17 Unknown Rx Nitrofurantoin [place]/M-Cryst 100 mg PO Q12HR #14 capsule 10/13/17 Unknown Rx [Macrobid CAP] levETIRAcetam [Keppra TAB] 500 mg PO BID #60 tablet 10/13/17 Unknown Rx Potassium Chloride 20 meq PO BID #20 packet 11/27/17 Unknown Rx levETIRAcetam [Keppra TAB] 750 mg PO BID #60 tablet 11/27/17 Unknown Rx ED Physical Exam - General Limitations: No Limitations General appearance: alert, in no apparent distress - Head Head exam: Present: atraumatic, normocephalic - Eye Eye exam: Present: normal appearance, PERRL, EOMI. Absent: nystagmus - ENT ENT exam: Present: normal exam, normal orophraynx, mucous membranes moist, normal external ear exam - Neck Neck exam: Present: normal inspection, full ROM. Absent: tenderness, meningismus - Respiratory Respiratory exam: Present: normal lung sounds bilaterally. Absent: respiratory distress - Cardiovascular Cardiovascular Exam: Present: normal rhythm, bradycardia, normal heart sounds. Absent: systolic murmur, diastolic murmur, rubs, gallop - GI/Abdominal GI/Abdominal exam: Present: soft, normal bowel sounds. Absent: distended, tenderness, guarding, rebound, rigid, pulsatile mass - Extremities Exam Extremities exam: Present: normal inspection, full ROM, normal capillary refill , other (2+ pulses noted in the bilateral upper, lower extremities. Compartments soft. No long bony tenderness. The pelvis is stable.). Absent: tenderness, pedal edema, joint swelling, calf tenderness - Back Exam Back exam: Present: normal inspection, full ROM. Absent: tenderness, CVA tenderness (R), paraspinal tenderness, vertebral tenderness - Neurological Exam Neurological exam: Present: alert, oriented X3, CN II-XII intact, normal gait, other (Extraocular movements intact. Tongue midline. No facial droop. Facial sensation intact to light touch in the V1, V2, V3 distribution bilaterally. 5 and 5 strength in 4 extremities.. Sensation is intact to light touch in 4 extremities.). Absent: motor sensory deficit - Psychiatric Psychiatric exam: Present: normal affect, normal mood - Skin Skin exam: Present: warm, dry, intact, normal color. Absent: rash ED Course Vital Signs 11/26/17 11/26/17 11/27/17 20:00 20:20 01:30 Temperature 98.4 F Pulse Rate 55 L 61 Respiratory 16 16 14 Rate Blood Pressure 120/71 Blood Pressure 107/72 [Left] O2 Sat by Pulse 99 97 100 Oximetry - Reevaluation(s) Reevaluation #1: 11/26/17 20:55 Differential diagnosis, including not limited to: Seizure, pseudoseizure, medication noncompliance, urinary tract infection, electrolyte derangement Assessment and plan: 22-year-old female with a complaint of breakthrough seizure. I have evaluated this patient's multiple times for similar complaints. On her initial evaluation she is afebrile with reassuring vital signs, clinically sober, with an NIH score of 0. She is loaded empirically with 1 g of Keppra. After I left the patient's room, it appeared that her IV with her Keppra had become discontinued/disconnected. Uncertain how this happened. As for the nurse, the patient had a generalized tonic-clonic seizure. This has since terminated. Additional gram Keppra ordered, EKG, urinalysis, screening laboratory studies ordered, we will observe the patient and reassessed. Reevaluation #2: 11/26/17 23:[address] scan of the brain is negative. X-ray of the chest is negative. Found to be hypokalemic; potassium is repleted. Walking with minimal assistance. No additional convulsive events noted. Reevaluation #3: 11/27/17 01:29 Reevaluation #4: 11/27/17 03:58 The patient has been observed in the ER for many hours without clinical decompensation. Please note that the patient had a very prolonged stay in the emergency department because it took a very long time to get a urine sample. Nevertheless, the patient's urine sample appears to be within normal limits at this time, and she is sleeping comfortably on a stretcher. She is medically stable for discharge at this point in time. ED Medical Decision Making - Lab Data Result diagrams: 11/26/17 20:48 11/26/17 20:48 Vital Signs 11/26/17 20:00 Temperature 98.4 F Pulse Rate 55 L Respiratory 16 Rate Blood Pressure 120/71 O2 Sat by Pulse 99 Oximetry - EKG Data -: EKG Interpreted by Me EKG shows normal: sinus rhythm, axis, intervals, QRS complexes, ST-T waves - EKG Data Interpretation: normal EKG - Radiology Data Radiology results: pending Critical care attestation.: If time is entered above; I have spent that time in minutes in the direct care of this critically ill patient, excluding procedure time. ED Disposition Clinical Impression: Recurrent seizures Disposition: DC-01 TO HOME OR SELFCARE Is pt being admited?: No Does the pt Need Aspirin: No Condition: Good Additional Instructions: Do not drive or operate motor vehicles for the next 6 months. Take the medications as directed. Follow up with a neurologist within the next 5-7 days. Return to the ER right away with new pain, worsened pain, migration of pain, projectile vomiting, change in mental status, confusion, inability to tolerate liquid feeds, recurrent seizure/convulsions. Prescriptions: levETIRAcetam [Keppra TAB] 750 mg PO BID #60 tablet Potassium Chloride 20 meq PO BID #20 packet Referrals: CLARISSE FONTANEZ MD [Referring] - 3-5 Days DIPAK NICOLAS MD [Staff Physician] - 3-5 Days SANTA SAMUEL MD [Staff Physician] - 3-5 Days
[2017-11-26] MEDS ORDERED: ATIVAN ONE (20:47)
[2017-11-26 21:02] LABS: Hemoglobin 11.7 gm/dl (10.1-14.3); Mean Corpuscular HGB Conc 34 % (30-34); Mean Corpuscular Hemoglobin 28 pg (28-32); Mean Corpuscular Volume 84 fl (79-97); Platelet Count 180 K/mm3 (140-440); Red Blood Count 4.15 M/mm3 (3.65-5.03); Red Cell Distribution Width 13.8 % (13.2-15.2)
[2017-11-26 21:34] LABS: BUN/Creatinine Ratio 13; Blood Urea Nitrogen 8 mg/dL (7-17); Calcium 8.7 mg/dL (8.4-10.2); Hemolysis Index 2
[2017-11-26] MEDS ORDERED: K-DUR PO ONE (22:00)
[2017-11-26] MEDS ORDERED: KCL 10MEQ/100ML 10 MEQ/100 ML BAG IV SCH (22:00)
--- NOTE | 2017-11-26 22:39 | Cat Scan Report ---
FINAL REPORT PROCEDURE: CT head without contrast. TECHNIQUE: Computerized tomography of the head was performed without contrast material. HISTORY: Recurrence seizures. COMPARISON: CT head 10/13/2017. FINDINGS: The ventricles are normal in size. The kelly matter and white matter appear normal. There are no mass lesions. There is no intracranial hemorrhage. The calvarium appears intact. The mastoid air cells and visualized paranasal sinuses are clear. IMPRESSION: Normal study.
[2017-11-26] MEDS ORDERED: NACL 0.9% 500 ML 500 ML ONE (23:08)
--- NOTE | 2017-11-26 23:14 | XRay Report ---
FINAL REPORT PROCEDURE: Chest. TECHNIQUE: Chest radiograph anteroposterior view. CPT 07369 HISTORY: recurrent seizures, questionable aspiration COMPARISON: No prior studies are available for comparison. FINDINGS: The heart size is normal. The lungs are grossly clear. There are no pleural effusions. The soft tissues and regional skeleton are unremarkable. IMPRESSION: No evidence of acute disease.
[2017-11-27 02:54] VITALS: BP 107/72
[2017-11-27 03:35] LABS: Bilirubin,Urine NEG (Negative); Blood,Urine NEG (Negative); Color,Urine Yellow (Yellow); Mucus,Urine 3+ /HPF; Protein,Urine <15 mg/dL mg/dL (Negative); RBC,Urine < 1.0 /HPF (0.0-6.0)
== END 2017-11-27 05:46 | disposition home or self-care (01) ==
LOC: ED 19:25
DX: G40.909 Epilepsy, unspecified, not intractable, without status epilepticus (principal); J45.909 Unspecified asthma, uncomplicated; Z88.8 Allergy status to other drugs, medicaments and biological substances; Z91.040 Latex allergy status
CPT/HCPCS: 36415; 70450; 71045; 80048; 81001; 82550; 82962; 83735; 84703; 85027; 93005; 93010; 96365; 96368; 99285; J1953; J3480; J7040; J2060

== ENCOUNTER 2020-01-09 04:03 | Emergency (ER) | payer OTHER ==
[2020-01-09] MEDS ORDERED: levETIRAcetam 1000 MG/NS 0.75% 1,000 MG/100 ML BAG IV ONE (08:14)
[2020-01-09] MEDS ORDERED: BUTALB/ACETAMINOPHEN/CAFFEINE TAB PO ONE (08:19)
--- NOTE | 2020-01-09 08:24 | Emergency Department Report ---
HPI - General Chief Complaint: Seizure Time Seen by Provider: 01/09/20 08:12 - HPI HPI: Room 7 The patient is a 24-year-old female present with a chief complaint of seizure. The patient states she was at work when she began to feel her typical aura which included a headache and dizziness. The patient states she went to lay down. The patient was found by her performance manager lying on the floor. Patient states she now just has a headache and gives a score of 8/10. Patient states she has not had her Keppra in the past 2 days. ED Past Medical Hx - Past Medical History Hx Diabetes: Yes (controlled by diet) Hx Seizures: Yes Hx Asthma: Yes - Surgical History Past Surgical History?: No - Family History Family history: no significant - Social History Smoking Status: Never Smoker Substance Use Type: None (Denies illicit drug use) - Medications Home Medications: Home Medications Medication Instructions Recorded Confirmed Last Taken Type levETIRAcetam [Keppra TAB] 500 mg PO BID #60 tablet 01/21/17 10/13/17 Unknown Rx Nitrofurantoin [place]/M-Cryst 100 mg PO Q12HR #14 capsule 10/13/17 Unknown Rx [Macrobid CAP] Potassium Chloride 20 meq PO BID #20 packet 11/27/17 Unknown Rx levETIRAcetam [Keppra TAB] 750 mg PO BID #60 tablet 11/27/17 Unknown Rx Ibuprofen [Motrin 800 MG tab] 800 mg PO Q8HR PRN #30 tablet 02/09/18 Unknown Rx Butalb/Acetamin/Caff 50-325-40 1 - 2 tab PO Q8HR PRN #10 tablet 01/09/20 Unknown Rx [Fioricet 50-325-40] levETIRAcetam [Keppra TAB] 500 mg PO BID #60 tablet 01/09/20 Unknown Rx ED Review of Systems ROS: Stated complaint: SEIZURE Other details as noted in HPI Constitutional: no symptoms reported Eyes: denies: eye pain ENT: denies: throat pain Respiratory: no symptoms reported Cardiovascular: denies: chest pain Endocrine: no symptoms reported Gastrointestinal: denies: vomiting Genitourinary: denies: dysuria Musculoskeletal: denies: back pain Neurological: headache Physical Exam - Physical Exam Vital Signs: Vital Signs 01/09/20 04:15 Temperature 98.1 F Pulse Rate 76 Respiratory 18 Rate Blood Pressure 134/99 O2 Sat by Pulse 100 Oximetry Physical Exam: GENERAL: The patient is well-developed well-nourished female lying on stretcher not appearing to be in acute distress. [] HEENT: Normocephalic. Atraumatic. Extraocular motions are intact. Patient has moist mucous membranes. NECK: Supple. Trachea midline CHEST/LUNGS: Clear to auscultation. There is no respiratory distress noted. HEART/CARDIOVASCULAR: Regular. There is no tachycardia. There is no gallop rub or murmur. ABDOMEN: Abdomen is soft, nontender. Patient has normal bowel sounds. There is no abdominal distention. SKIN: There is no rash. There is no edema. There is no diaphoresis. NEURO: The patient is awake, alert, and oriented. The patient is cooperative. The patient has no focal neurologic deficits. The patient has normal speech. Cranial nerves II through XII grossly intact MUSCULOSKELETAL: There is no evidence of acute injury. ED Course Vital Signs 01/09/20 04:15 Temperature 98.1 F Pulse Rate 76 Respiratory 18 Rate Blood Pressure 134/99 O2 Sat by Pulse 100 Oximetry ED Medical Decision Making - Lab Data Result diagrams: 01/09/20 08:19 01/09/20 08:19 - Radiology Data Radiology results: report reviewed (CT head), image reviewed (CT head) [place] [id number] Cat Scan Report Signed Patient: GOLDIE OROZCO MR#: [id number] : 1995 Acct:[id number] Age/Sex: 24 / F ADM Date: 01/09/20 Loc: ED Attending Dr: Ordering Physician: CASIE DOVE MD Date of Service: 01/09/20 Procedure(s): CT head/brain wo con Accession Number(s): [id number] cc: CASIE DOVE MD CT BRAIN: 01/09/2020 INDICATION / CLINICAL INFORMATION: Seizure, dizziness. COMPARISON: 11/26/2017 FINDINGS: BRAIN/INTRACRANIAL STRUCTURES: Unenhanced CT images of the brain demonstrate no evidence of acute intracranial abnormality. Ventricles and sulci are normal in size and shape. There is no evidence of ischemic injury, demyelination, hemorrhage, or mass. There are no abnormal extra-axial fluid collections. EXTRACRANIAL STRUCTURES: Unremarkable. IMPRESSION: No acute abnormality. No change when compared to 11/24/2017. All CT scans at this location are performed using dose reduction to ALARA by means of automated exposure control. Signer Name: Rolando Willson MD Signed: 01/09/2020 11:20 AM Workstation Name: [id number] Transcribed By: CANDELARIO Dictated By: Rolando Willson MD Electronically Authenticated By: Rolando Willson MD Signed Date/Time: 01/09/20 1120 DD/DT: 06/24 1118 TD/TT: - Differential Diagnosis Seizure Critical care attestation.: If time is entered above; I have spent that time in minutes in the direct care of this critically ill patient, excluding procedure time. ED Disposition Clinical Impression: Seizure, Headache Disposition: - TO HOME OR SELFCARE Is pt being admited?: No Does the pt Need Aspirin: No Condition: Stable Instructions: Epilepsy (ED) Additional Instructions: Return to the emergency department should you develop worsening symptoms, inability to tolerate food or liquids, high fever or any other concerns Prescriptions: Butalb/Acetamin/Caff 50-325-40 [Fioricet 50-325-40] 1 - 2 tab PO Q8HR PRN #10 tablet PRN Reason: Headache levETIRAcetam [Keppra TAB] 500 mg PO BID #60 tablet Referrals: DIPAK NICOLAS MD [Staff Physician] - 3-5 Days (Dr. Nicolas is a neurologist. Please follow-up with him for further evaluation) Time of Disposition: 11:39
[2020-01-09 08:54] LABS: Basophils % (Auto) 0.3 % (0.0-1.8); Eosinophils # (Auto) 0.1 K/mm3 (0.0-0.4); Hematocrit 42.8 % (30.3-42.9); Lymphocytes # (Auto) 1.5 K/mm3 (1.2-5.4); Lymphocytes % (Auto) 15.2 % (13.4-35.0); Mean Corpuscular HGB Conc 33 % (30-34); Mean Corpuscular Volume 85 fl (79-97); Monocytes # (Auto) 0.7 K/mm3 (0.0-0.8); Monocytes % (Auto) 6.9 % (0.0-7.3); Red Blood Count 5.03 M/mm3 (3.65-5.03); Red Cell Distribution Width 13.7 % (13.2-15.2)
[2020-01-09 09:09] LABS: Blood Urea Nitrogen 9 mg/dL (7-17); Calcium 9.7 mg/dL (8.4-10.2); Hemolysis Index 12
[2020-01-09 09:13] LABS: BUN/Creatinine Ratio 18
[2020-01-09] MEDS ORDERED: ONDANSETRON 4 MG/2 ML INJ ONE (09:24)
[2020-01-09] MEDS ORDERED: ONDANSETRON 4 MG/2 ML INJ IV ONE (09:26)
[2020-01-09] MEDS ORDERED: METOCLOPRAMIDE 10 MG/2 ML INJ IV ONE (09:43)
[2020-01-09 09:51] LABS: Platelet Count 160 K/mm3 (140-440)
[2020-01-09] MEDS ORDERED: MECLIZINE 25 MG TAB PO ONE (10:35)
--- NOTE | 2020-01-09 11:24 | Cat Scan Report ---
CT BRAIN: 01/09/2020 INDICATION / CLINICAL INFORMATION: Seizure, dizziness. COMPARISON: 11/26/2017 FINDINGS: BRAIN/INTRACRANIAL STRUCTURES: Unenhanced CT images of the brain demonstrate no evidence of acute int racranial abnormality. Ventricles and sulci are normal in size and shape. There is no evidence of ischemic injury, demyelination, hemorrhage, or mass. There are no abnormal ex tra-axial fluid collections. EXTRACRANIAL STRUCTURES: Unremarkable. IMPRESSION: No acute abnormality. No change when compared to 11/24/2017. All CT scans at this location are performed using dose reduction to ALARA by means of automated expos ure control. Signer Name: Rolando Willson MD Signed: 01/09/2020 11:20 AM Workstation Name: [id number]
[2020-01-09 12:13] VITALS: BP 107/61
== END 2020-01-09 12:33 | disposition home or self-care (01) ==
LOC: ED 04:03
DX: R56.9 Unspecified convulsions (principal); R51.9 Headache, unspecified; E11.9 Type 2 diabetes mellitus without complications; J45.909 Unspecified asthma, uncomplicated; Z79.1 Long term (current) use of non-steroidal anti-inflammatories (NSAID); Z79.899 Other long term (current) drug therapy; Z88.8 Allergy status to other drugs, medicaments and biological substances
CPT/HCPCS: 36415; 70450; 80048; 83735; 84703; 85025; 96365; 96375; 99284; J1953; J2405; J2765